=== PATIENT | female | born 1995 | race American Indian/Alaskan Native ===

== ENCOUNTER 2018-07-03 09:06 | Emergency (ER) | payer MEDICAID ==
[2018-07-03 09:32] VITALS: RESP 18; TEMP 98.7
[2018-07-03 10:39] LABS: PH,URINE 6.5 (4.7-8.0); URINE BILIRUBIN NEGATIVE (NEGATIVE); URINE BLOOD NEGATIVE (NEGATIVE); URINE GLUCOSE (UA) NEGATIVE (NEGATIVE); URINE LEUKOCYTE ESTERASE MODERATE Leu/uL (NEGATIVE); URINE PROTEIN NEGATIVE mg/dL (<30 mg/dL); URINE UROBILINOGEN 0.2 E.U./dL (<1 E.U./dL)
[2018-07-03 10:40] LABS: URINE COLOR YELLOW (YELLOW)
[2018-07-03 10:41] LABS: URINE APPEARANCE CLOUDY (CLEAR)
--- NOTE | 2018-07-03 10:44 | ED PDOC ---
Arrival/HPI - General Chief Complaint: Abdominal Pain Time Seen by Provider: 07/03/18 09:10 Historian: Patient - History of Present Illness Narrative History of Present Illness (Text): 07/03/18 10:20 22 year old female, whose last menstrual period was 10/30/17 and is currently 30 weeks , presents to the emergency department complaining of abdominal pain that began 2 days ago. Patient reports bilateral abdominal breaux radiating to the right side and right back. Patient last felt her baby kick this morning, but reports decrease movement and states she has been inconsistent with her per- care. Her last ultrasound was 01/2018 and is unknown of the gender of the baby. Patient reports intermittent nausea, but denies any fever, chills, chest pain, shortness of breath, vomiting, diarrhea, dysuria, hematuria, vaginal bleeding, headache, dizziness, or any other complaints. Time/Duration: Other (2 days) Symptom Onset: Gradual Symptom Course: Unchanged Activities at Onset: Light Context: Home Past Medical History - Provider Review Nursing Documentation Reviewed: Yes - Hematological/Oncological Hx Anemia: Yes - Psychiatric Hx Substance Use: No Family/Social History - Physician Review Nursing Documentation Reviewed: Yes Family/Social History: No Known Family HX Smoking Status: Never Smoked Hx Alcohol Use: No Hx Substance Use: No Allergies/Home Meds Allergies/Adverse Reactions: Allergies No Known Allergies Allergy (Verified 07/03/18 09:31) Home Medications: Home Meds Medication Instructions Recorded Confirmed Pnv No.95/Ferrous Fum/Folic AC 1 tab PO DAILY 07/03/18 07/03/18 [ Vitamin Tablet] Review of Systems - Physician Review All systems were reviewed & negative as marked: Yes - Review of Systems Constitutional: absent: Fevers, Other (chills) Respiratory: absent: SOB Cardiovascular: absent: Chest Pain Gastrointestinal: Abdominal Pain, Nausea. absent: Diarrhea, Vomiting Genitourinary Female: absent: Dysuria, Hematuria, Vaginal Bleeding Musculoskeletal: Back Pain. absent: Neck Pain Neurological: absent: Headache, Dizziness Physical Exam Vital Signs Reviewed: Yes Vital Signs Temp Pulse Resp BP Pulse Ox 07/03/18 09:27 98.7 F 89 18 120/80 98 Temperature: Afebrile Blood Pressure: Normal Pulse: Regular Respiratory Rate: Normal Appearance: Positive for: Well-Appearing, Non-Toxic, Comfortable Pain Distress: None Mental Status: Positive for: Alert and Oriented X 3 - Systems Exam Head: Present: Atraumatic, Normocephalic Pupils: Present: PERRL Extroacular Muscles: Present: EOMI Mouth: Present: Moist Mucous Membranes Respiratory/Chest: Present: Clear to Auscultation, Good Air Exchange. No: Respiratory Distress, Accessory Muscle Use Cardiovascular: Present: Regular Rate and Rhythm, Normal S1, S2. No: Murmurs Abdomen: Present: Tenderness (to the right pelvis region as well as the left), Other (Gravid abdomen). No: Distention, Peritoneal Signs Back: Present: CVA Tenderness (right-sided ) Neurological: Present: GCS=15, Speech Normal Skin: Present: Warm, Dry, Normal Color. No: Rashes Psychiatric: Present: Alert, Oriented x 3, Normal Insight, Normal Concentration Medical Decision Making ED Course and Treatment: 07/03/18 10:20 Impression: 22 year old female presents complaining of bilateral abdominal pain for the last 2 days that radiates to the right side and back associated with intermittent nausea. Patient is 30 weeks . Differential Diagnosis included but are not limited to: -- Pyelonephritis -- UTI -- Pseudocontraction Plan: -- Labs -- Keflex --Tylenol -- Urine Culture -- UA w/ micro -- Reassess and disposition Progress Notes: 07/03/18 12:58 Labs reveal no leukocytosis, but shows UTI present in urine. US reveals no evidence of hydronephrosis or perinephric stranding. Call placed to Dr. Zeyad Hall(gynecology). 07/03/18 13:17 Findings explained to patient who states she has a headache. Will order tylenol. Since she remains afebrile, has no history of emesis/nausea during her stay in the ED and has follow up, she is amenable to discharge. Opportunity for question s given and answered. Scripts provided. She requests a lists of [employer] in the area as she is dissatisfied with hers. She is stable for discharge. - Lab Interpretations Lab Results: 07/03/18 11:08 07/03/18 11:08 Lab Results 07/03/18 12:36: Blood Type Confirm O POSITIVE 07/03/18 11:26: Blood Type O POSITIVE, Antibody Screen Negative, BBK History Checked No verified bt 07/03/18 11:08: Beta HCG, Quant 3693.60 H 07/03/18 11:08: Sodium 135, Potassium 4.2, Chloride 105, Carbon Dioxide 23, Anion Gap 11, BUN 11, Creatinine 0.7, Est GFR ( Amer) > 60, Est GFR (Non- Af Amer) > 60, Random Glucose 86, Calcium 9.0, Total Bilirubin 0.5, AST 24, ALT 13, Alkaline Phosphatase 87, Total Protein 7.3, Albumin 3.5, Globulin 3.8, Albumin/Globulin Ratio 0.9 L 07/03/18 11:08: WBC 9.3, RBC 4.01, Hgb 11.3 L, Hct 34.2 L, MCV 85.3, MCH 28.2, MCHC 33.0, RDW 13.8, Plt Count 337, MPV 10.2, Neut % (Auto) 75.7 H, Lymph % (Auto) 15.6 L, [place] % (Auto) 5.9, Eos % (Auto) 2.4, Baso % (Auto) 0.4, Lymph # (Auto) 1.5, [place] # (Auto) 0.6, Eos # (Auto) 0.2, Baso # (Auto) 0.04, Absolute Neuts (auto) 7.01 H 07/03/18 10:15: Urine Color Yellow, Urine Appearance Cloudy, Urine pH 6.5, Ur Specific [place] 1.020, Urine Protein Negative, Urine Glucose (UA) Negative, Urine Ketones Negative, Urine Blood Negative, Urine Nitrate Negative, Urine Bilirubin Negative, Urine Urobilinogen 0.2, Ur Leukocyte Esterase Moderate H, Urine RBC 1 - 3 H, Urine WBC 5 - 10 H, Ur Epithelial Cells Many H, Urine Bacteria Mod I have reviewed the lab results: Yes - RAD Interpretation Narrative RAD Interpretations (Text): 07/03/18 15:24 Renal Sonogram IMPRESSION: Unremarkable renal sonogram as above. Radiology Orders: Date of service: 07/03/2018 PROCEDURE: Ultrasound of the Kidneys HISTORY: UTI w/ back pain...r/o pyelo COMPARISON: None available. TECHNIQUE: Sonogram of the kidneys. FINDINGS: RIGHT KIDNEY: Measures: 11.7 x 5.3 x 6.1 cm. No obstructing calculus, hydronephrosis, or renal cyst identified. LEFT KIDNEY: Measures: 11.0 x 6.6 x 6.0 cm. No obstructing calculus, hydronephrosis, or renal cyst identified. OTHER FINDINGS: None. IMPRESSION: Unremarkable renal sonogram as above. Please note that pyelonephritis cannot be excluded on the basis of sonography alone. - Medication Orders Current Medication Orders: 07/03/18 12:59 Discontinued Medications Cephalexin Monohydrate (Keflex) 500 mg PO STAT STA; Protocol Stop: 07/03/18 11:48 - Scribe Statement The provider has reviewed the documentation as recorded by the Scribe Garrick Zavaleta All medical record entries made by the Scribe were at my direction and personally dictated by me. I have reviewed the chart and agree that the record accurately reflects my personal performance of the history, physical exam, medical decision making, and the department course for this patient. I have also personally directed, reviewed, and agree with the discharge instructions and disposition Disposition/Present on Arrival - Present on Arrival Any Indicators Present on Arrival: No History of DVT/PE: No History of Uncontrolled Diabetes: No Urinary Catheter: No History of Decub. Ulcer: No History Surgical Site Infection Following: None - Disposition Have Diagnosis and Disposition been Completed?: Yes Diagnosis: UTI (urinary tract infection), Disposition: HOME/ ROUTINE Disposition Time: 13:28 Patient Plan: Discharge Patient Problems: Current Active Problems Problem Status Onset Acute UTI (urinary tract infection) Acute Condition: STABLE Discharge Instructions (ExitCare): Urinary Tract Infection, Adult (DC) Print Language: NAURUAN Additional Instructions: All medical record entries made by the Scribe were at my direction and personally dictated by me. I have reviewed the chart and agree that the record accurately reflects my personal performance of the history, physical exam, medical decision making, and the department course for this patient. I have also personally directed, reviewed, and agree with the discharge instructions and disposition. Please take medications as prescribed Please follow up with your [employer] and ask for follow up visit Prescriptions: Cephalexin [cephalexin] 500 mg PO BID 5 Days #10 cap Referrals: Foreign Pizano MD [Medical Doctor] - Follow up with primary Jose R Haile MD [Medical Doctor] - Follow up with primary Marybeth Cotton MD [Medical Doctor] - Follow up with primary Forms: [employer] (T[place]isian), WORK NOTE
[2018-07-03 11:00] LABS: URINE BACTERIA MOD /hpf; URINE EPITHELIAL CELLS MANY /hpf (0-5)
[2018-07-03 11:28] LABS: BASO # 0.04 K/mm3 (0.0-2.0); BASO % 0.4 % (0.0-3.0); EOS # 0.2 (0.0-0.7); EOS % 2.4 % (1.5-5.0); HEMOGLOBIN 11.3 g/dL (12.0-16.0); LYMPH # 1.5 (1.2-3.4); LYMPH % 15.6 % (22.0-35.0); MEAN CELL VOLUME 85.3 fl (80.0-105.0); MEAN CORPUSCULAR HEMOGLOBIN 28.2 pg (25.0-35.0); MEAN PLATELET VOLUME 10.2 fl (7.0-11.0); MONO # 0.6 (0.1-0.6); MONO % 5.9 % (1.0-6.0); RBC 4.01 10^6/uL (3.5-6.1); RED CELL DISTRIBUTION WIDTH 13.8 % (11.5-14.5); WHITE BLOOD COUNT 9.3 10^3/uL (4.5-11.0)
[2018-07-03 11:41] LABS: ALB/GLOB RATIO 0.9 (1.1-1.8); ALBUMIN 3.5 g/dL (3.0-4.8); ALT/SGPT 13 U/L (7-56); AST/SGOT 24 U/L (14-36); BLOOD UREA NITROGEN 11 mg/dL (7-21); GFR NON-AFRICAN AMERICAN > 60
--- NOTE | 2018-07-03 12:38 | US ---
Date of service: 07/03/2018 PROCEDURE: Ultrasound of the Kidneys HISTORY: UTI w/ back pain...r/o pyelo COMPARISON: None available. TECHNIQUE: Sonogram of the kidneys. FINDINGS: RIGHT KIDNEY: Measures: 11.7 x 5.3 x 6.1 cm. No obstructing calculus, hydronephrosis, or renal cyst identified. LEFT KIDNEY: Measures: 11.0 x 6.6 x 6.0 cm. No obstructing calculus, hydronephrosis, or renal cyst identified. OTHER FINDINGS: None. IMPRESSION: Unremarkable renal sonogram as above. Please note that pyelonephritis cannot be excluded on the basis of sonography alone.
[2018-07-03 13:52] VITALS: BP 145/61; PULSE 74; O2SAT 100
== END 2018-07-03 14:30 | disposition home or self-care (01) ==
LOC: ED 09:06
DX: O23.43 Unspecified infection of urinary tract in pregnancy, third trimester (principal); Z3A.30 30 weeks gestation of pregnancy